=== PATIENT | male | born 1995 | race Caucasian/White ===

== ENCOUNTER 2017-07-20 23:40 | Emergency (ER) | payer MEDICAID, OTHER ==
[~2017-07-20] VITALS: Ht 182.9 cm; Wt 63.5 kg
[2017-07-20 23:51] VITALS: BP 146/90
--- NOTE | 2017-07-21 00:05 | NUR ---
PT TAKEN TO OF3
--- NOTE | 2017-07-21 00:10 | NUR ---
PT BIB FAMILY C/O DIFF OF BREATHING SINCE YESTERDAY, VOMITING , BOTH EAR CLOGGED UP, SORETHROAT, COUGH. PT DENIES TRAUMA; SKIN IS INTACT, FLUSHED/WARM/DRY; AAOX4, PERRL, WITH EVEN AND STEADY GAIT; LUNGS CLEAR BL, BREATHING UNLABORED; HR EVEN AND REGULAR, BL PERIPHERAL PULSES PRESENT; BS ACTIVE X4, NO TENDERNESS TO PALPATION. PT DENIES ANY FEVER, CP, SOB AT THIS TIME; PT STATES 5/10 PAIN AT THIS TIME; VSS; PATIENT POSITIONED FOR COMFORT; HOB ELEVATED; BEDRAILS UP X2; BED DOWN.
--- NOTE | 2017-07-21 00:19 | NUR ---
Dr. Cm evaluating patient
[2017-07-21] MEDS ORDERED: predniSONE 20 MG TAB PO ONE (00:25)
[2017-07-21] MEDS ORDERED: ALBUTEROL SULFATE/IPRATROPIU 3 ML SOL IH ONE (00:25)
[2017-07-21] MEDS ORDERED: ACETAMIN/CODEINE 120/12MG-5ML 5 ML UDC PO ONE (00:25)
--- NOTE | 2017-07-21 00:31 | NUR ---
Respiratory Therapist at bedside for respiratory intervention.
--- NOTE | 2017-07-21 00:31 | NUR ---
PT MOVED TO BED 7
--- NOTE | 2017-07-21 01:05 | NUR ---
X-Ray at bedside.
--- NOTE | 2017-07-21 01:39 | NUR ---
Patient discharged with v/s stable. Written and verbal after care instructions given and explained. Patient alert, oriented and verbalized understanding of instructions. Ambulatory with steady gait. All questions addressed prior to discharge. ID band removed. Patient advised to follow up with PMD. Rx of PREDNISONE 50MG, ALBUTEROL INHALER, AND GUAIATUSSIN AC given. Patient educated on indication of medication including possible reaction and side effects. Opportunity to ask questions provided and answered.
[2017-07-21 01:40] VITALS: BP 137/84
== END 2017-07-21 01:39 | disposition home or self-care (01) ==
LOC: MED 23:40
DX: J45.901 Unspecified asthma with (acute) exacerbation (principal); J20.9 Acute bronchitis, unspecified
CPT/HCPCS: 71010; 94640; 94760; 99283; J7512; J7620; Q0092

== ENCOUNTER 2017-11-30 07:47 | Emergency (ER) | payer OTHER ==
[~2017-11-30] VITALS: Ht 182.9 cm; Wt 60.4 kg
[2017-11-30 08:00] VITALS: BP 123/48
--- NOTE | 2017-11-30 08:01 | NUR ---
PT TAKEN TO OVERFLOW 1.
[2017-11-30] MEDS ORDERED: ALBUTEROL 0.083% 2.5 MG/3 ML NEBU INH ONE (08:05)
[2017-11-30] MEDS ORDERED: predniSONE 20 MG TAB PO ONE (08:05)
[2017-11-30] MEDS ORDERED: ALBUTEROL SULFATE/IPRATROPIU 3 ML SOL IH ONE (08:05)
--- NOTE | 2017-11-30 08:05 | NUR ---
PATIENT PRESENTS TO ED WITH C/O SOB SINCE LAST NIGHT WITH BODY ACHES 5/10; M/N MACHINE NOT WORKING ONLY TOOK INHALER; DENIES N/V/D;HX OF ASTHMA;RX OF ALBUTEROL;SKIN IS PINK/WARM/DRY; AAOX4 WITH EVEN AND STEADY GAIT; PT DENIES ANY FEVER, CP, AT THIS TIME; PATIENT STATES PAIN OF 5/10 AT THIS TIME;PATIENT POSITIONED FOR COMFORT; ER MD MADE AWARE OF PT STATUS.
--- NOTE | 2017-11-30 08:19 | NUR ---
RT AT BEDSIDE.
[2017-11-30 08:48] VITALS: BP 126/62
--- NOTE | 2017-11-30 08:48 | NUR ---
Patient discharged with v/s stable. Written and verbal after care instructions given and explained. Patient alert, oriented and verbalized understanding of instructions. Ambulatory with steady gait. All questions addressed prior to discharge. ID band removed. Patient advised to follow up with PMD. Rx of ALBUTEROL AND PREDNISONE given. Patient educated on indication of medication including possible reaction and side effects. Opportunity to ask questions provided and answered.
== END 2017-11-30 08:48 | disposition home or self-care (01) ==
LOC: MED 07:47
DX: J45.901 Unspecified asthma with (acute) exacerbation (principal)
CPT/HCPCS: 94640; 99283; J7512; J7613; J7620

== ENCOUNTER 2024-06-23 03:13 | Emergency (ER) | payer OTHER ==
[~2024-06-23] VITALS: Ht 182.9 cm; Wt 86.2 kg
[2024-06-23 03:20] VITALS: BP 119/59; PULSE 108; RESP 18; TEMP 97.5; O2SAT 98
[2024-06-23] MEDS: LIDOCAINE MPF 1% 10 MG/ML VIAL INJ ONE (03:45)
[2024-06-23] MEDS: IBUPROFEN 600 MG TAB PO ONE (04:14)
[2024-06-23] MEDS ORDERED: CEPH-588 PO (04:52)
[2024-06-23] MEDS ORDERED: TRAM-748 PO (04:52)
== END 2024-06-23 05:06 | disposition home or self-care (01) ==
LOC: MED 03:13
DX: S51.812A Laceration without foreign body of left forearm, initial encounter (principal); S51.811A Laceration without foreign body of right forearm, initial encounter; J45.909 Unspecified asthma, uncomplicated; Z79.2 Long term (current) use of antibiotics; Z79.899 Other long term (current) drug therapy; Y04.8XXA Assault by other bodily force, initial encounter; Y93.89 Activity, other specified; Y92.89 Other specified places as the place of occurrence of the external cause; Y99.8 Other external cause status
CPT/HCPCS: 12042; 73090; 73130; 90471; 90715; 99284; J2001

== ENCOUNTER 2024-07-06 12:32 | Emergency (ER) | payer OTHER ==
[~2024-07-06] VITALS: Ht 182.9 cm; Wt 84.5 kg
[~2024-07-06 12:32] MED LIST: CEPH-588 PO; TRAM-748 PO
[2024-07-06 12:41] VITALS: BP 132/78; PULSE 56; RESP 17; TEMP 97.8; O2SAT 100
== END 2024-07-06 14:05 | disposition home or self-care (01) ==
LOC: MED 12:32
DX: S61.511D Laceration without foreign body of right wrist, subsequent encounter (principal); Z48.00 Encounter for change or removal of nonsurgical wound dressing; J45.909 Unspecified asthma, uncomplicated; Z79.2 Long term (current) use of antibiotics; Z79.899 Other long term (current) drug therapy; X58.XXXD Exposure to other specified factors, subsequent encounter
CPT/HCPCS: 99281